=== PATIENT | female | born 1980 | race Caucasian/White ===

== ENCOUNTER 2024-12-04 16:45 | Outpatient (CLI) | payer OTHER, SELFPAY | END 2024-12-04 16:46 | disposition home or self-care (01) | LOC: NFLDREF 12-06 15:13 | DX: R30.0 Dysuria (principal) | CPT/HCPCS: 87086 ==

== ENCOUNTER 2024-12-10 15:56 | Outpatient (CLI) | payer OTHER, SELFPAY | END 2024-12-10 15:57 | disposition home or self-care (01) | LOC: NFLDREF 12-12 17:31 | DX: N30.00 Acute cystitis without hematuria (principal); B96.20 Unspecified Escherichia coli [E. coli] as the cause of diseases classified elsewhere | CPT/HCPCS: 87086 ==

== ENCOUNTER 2025-03-17 11:49 | Outpatient (CLI) | payer OTHER, SELFPAY | END 2025-03-17 11:50 | disposition home or self-care (01) | LOC: NFLDREF 03-21 09:27 | PROVIDERS: Visit Provider Nurse Practitioner Family | DX: N30.90 Cystitis, unspecified without hematuria (principal) | CPT/HCPCS: 87086 ==